=== PATIENT | male | born 1995 | race Caucasian/White ===

== ENCOUNTER 2018-08-30 11:16 | Emergency (ER) | payer OTHER, BC ==
[2018-08-30 11:37] VITALS: BP 131/78; PULSE 88; TEMP 98.6; BMI 28.2
--- NOTE | 2018-08-30 12:38 | PDOC ---
History of Present Illness - General Chief Complaint: Laceration Stated Complaint: CUT ON RT PINKY/BLEEDING - History of Present Illness Initial Comments: 08/30/18 19:45 The patient is a 22 year old male with no PMH who presents with a laceration to his R 5th digit. Patient works as a lineworker for the [employer] and was lifting a bag of trash when a protruding piece of glass caught his finger. Patient applied pressure and presented to our ED for further evaluation. The patient denies chest pain, shortness of breath, abdominal pain, diarrhea/ constipation, nausea/vomiting. NKDA Surgical: denies Social: denies toxic habits Past History - Past Medical History Allergies/Adverse Reactions: Allergies Allergy/AdvReac Type Severity Reaction Status Date / Time peanut Allergy Verified 08/30/18 11:34 Home Medications: Ambulatory Orders NK [No Known Home Medication] 08/05/15 COPD: No - Immunization History Td Vaccination: Yes TDAP Vaccination: No Immunization Up to Date: Yes - Suicide/Smoking/Psychosocial Hx Smoking History: Never smoked Have you smoked in the past 12 months: No Number of Cigarettes Smoked Daily: 0 Cigars Per Day: 0 Hx Alcohol Use: Yes (OCCASIONALLY) Drug/Substance Use Hx: No Substance Use Type: Alcohol Review of Systems - Review of Systems Constitutional: No: Chills, Fever HEENTM: No: Blurred Vision, Double Vision Respiratory: No: Cough, Shortness of Breath Cardiac (ROS): No: Chest Pain, Lightheadedness, Palpitations, Syncope ABD/GI: No: Constipated, Diarrhea, Nausea, Vomiting *Physical Exam - Vital Signs Last Vital Signs Temp Pulse Resp BP Pulse Ox 98.6 F 88 18 131/78 98 08/30/18 11:35 08/30/18 11:35 08/30/18 11:35 08/30/18 11:35 08/30/18 11:35 - Physical Exam General Appearance: Yes: Nourished, Appropriately Dressed HEENT: positive: Normal Voice, Hearing Grossly Normal Neck: positive: Trachea midline, Supple Comments:: 08/30/18 19:47 2+ radial pulses Extremity: positive: Other (0.8 cm laceration on R 5th digit, not actively bleeding, 2+ R radial pulse, sensation intact, tendons intact) Medical Decision Making - Medical Decision Making 08/30/18 19:49 22 year old male presents with R 5th digit laceration. NVI at presentation. Wound closed using 3 simple interrupted sutures. Patient counseled on return precautions and discharged home. *DC/Admit/Observation/Transfer Diagnosis at time of Disposition: Laceration, Finger laceration - Discharge Dispostion Disposition: HOME Condition at time of disposition: Good Decision to Admit order: No - Referrals - Patient Instructions Printed Discharge Instructions: DI for Laceration Repair Additional Instructions: Return to the Emergency Department for any new/worsening/concerning symptoms including loose sutures, discharge, redness or foul discharge otherwise return in 5 days for suture removal. - Post Discharge Activity Forms/Work/School Notes: Back to Work
== END 2018-08-30 12:56 | disposition home or self-care (01) ==
LOC: JERFT 11:16
PROC: 0HQFXZZ Repair Right Hand Skin, External Approach (ICD-10-PCS; principal; 2018-08-30)
DX: S61.216A Laceration without foreign body of right little finger without damage to nail, initial encounter (principal); W25.XXXA Contact with sharp glass, initial encounter; Y93.H9 Activity, other involving exterior property and land maintenance, building and construction; Y92.414 Local residential or business street as the place of occurrence of the external cause; Y99.0 Civilian activity done for income or pay
CPT/HCPCS: 99281-25

== ENCOUNTER 2019-06-08 07:03 | Emergency (ER) | payer OTHER, BC ==
[2019-06-08] MEDS ORDERED: ACETAMINOPHEN 500 MG TABLET (FP) PO ONE (07:51)
[2019-06-08 08:09] VITALS: BP 111/57; PULSE 90; TEMP 98.2; BMI 28.8
[2019-06-08] MEDS ORDERED: ACETAMINOPHEN 325 MG TABLET (FP) ONE (08:15)
--- NOTE | 2019-06-08 08:52 | PDOC ---
Attending Attestation - Resident Resident Name: Suzi Bhatti - ED Attending Attestation I have performed the following: I have examined & evaluated the patient, The case was reviewed & discussed with the resident, I agree w/resident's findings & plan, Exceptions are as noted - HPI HPI: 06/08/19 08:47 23-year-old gentleman with no significant past medical history presenting with laceration to the right forearm sustained while he was lifting a bag of trash with broken glass. Pt notes some bleeding, but he was quick to place pressure. denies any numnbes/tingling/weakness. tetanus UTD on exam pt with lacerations to the R forearm +injury to underlying muscle / fascia but extensor functions intact w right hand without weakness, no tendons/ligaments or injurys visible nv intact n oactive bleeding xray to r/o fb will need irrigation/lac repair 06/08/19 10:26 06/08/19 11:37 area was irrigated throughly, explored without signs of FB, xray neg for FB laceratio nclosed by resident Davy - fascia closed with resorbable deep sutures and exterior lac closed with nylon with good approximation. n/v intact discussed wit hpatient importance of avoiding heavy lifting will have pt fu with pmd return precautios were dsicussed
--- NOTE | 2019-06-08 09:14 | PDOC ---
History of Present Illness - General Chief Complaint: Injury Stated Complaint: INJURY Time Seen by Provider: 06/08/19 08:23 - History of Present Illness Initial Comments: 06/08/19 09:14 23yo M no hx presents from home c/o R forearm lac. Pt was at work this AM ~ 1.5hrs ago and cut his R proximal lateral forearm on a broken glass and wood cabinet. Pt stopped bleeding with pressure. Pt believes there might be some glass in there. Endorses mild pain. Denies numbness/tingling, weakness, dizziness, headache, other injuries, CP, SOB, abdominal pain. Last tetanus 4 years ago. 06/08/19 09:31 Past History - Past Medical History Allergies/Adverse Reactions: Allergies Allergy/AdvReac Type Severity Reaction Status Date / Time peanut Allergy Verified 06/08/19 08:09 Home Medications: Ambulatory Orders NK [No Known Home Medication] 08/05/15 COPD: No - Immunization History Td Vaccination: Yes TDAP Vaccination: No Immunization Up to Date: Yes - Suicide/Smoking/Psychosocial Hx Smoking History: Never smoked Have you smoked in the past 12 months: No Number of Cigarettes Smoked Daily: 5 Cigars Per Day: 0 Information on smoking cessation initiated: No Hx Alcohol Use: No Drug/Substance Use Hx: No Substance Use Type: Alcohol Review of Systems - Review of Systems Comments:: 06/08/19 09:22 Constitutional: Negative for chills, fever, fatigue. HENT: Negative for sore throat, rhinorrhea, congestion. Eyes: Negative for visual disturbance. Respiratory: Negative for shortness of breath, cough, and wheezing. Cardiovascular: Negative for chest pain, palpitations, and leg swelling. Gastrointestinal: Negative for abdominal pain, blood in stool, constipation, diarrhea, nausea, and vomiting. Genitourinary: Negative for dysuria, flank pain, and hematuria. Musculoskeletal: Negative for myalgias, back pain, and neck pain. Skin: Positive for laceration to R forearm. Negative for rash. Neurological: Negative for light-headedness, dizziness, syncope, weakness, numbness and headaches. Psychiatric/Behavioral: Negative for behavioral problems and confusion. *Physical Exam - Vital Signs Last Vital Signs Temp Pulse Resp BP Pulse Ox 98.2 F 90 17 111/57 L 99 06/08/19 08:03 06/08/19 08:03 06/08/19 08:03 06/08/19 08:03 06/08/19 08:03 - Physical Exam Comments: 06/08/19 12:46 Gen: Alert, NAD, comfortable-appearing. HEENT: PERRL, EOMI, MMM, NCAT. No conjunctival pallor. Sclera are non-icteric. Oropharynx is clear. CV: Regular rate and rhythm. No murmurs, rubs, or gallops. PULM: No resp distress. CTAB, no wheezes, rales, or rhonchi. ABD: soft, NT/ND, no rebound tenderness or guarding, no CVA tenderness. BACK: No TTP of c/t/l-spine. No step-offs or deformities. MSK: No bony deformities. 2+ pulses in all extremities. NEURO: AAOx3. PERRL. No gross CN deficits. Strength and sensation grossly intact throughout. EXTREMITIES: No cyanosis. No clubbing. No edema. No calf tenderness. RIGHT FOREARM: 5cm x 2cm L-shaped laceration with 4cm gaping, through muscle and fascia, no foreign objects seen, on right lateral posterior forearm just distal to elbow. Strength and sensation intact in all RUE. Full ROM of all fingers, wrist, and elbow. Normal capillary refill. PSYCH: Normal mood and thought pattern. SKIN: Warm and dry. Normal capillary refill. No rashes. No jaundice. Procedures - Laceration/Wound Repair Right Posterior Lateral Distal Arm Wound Length: 2.6 to 5.0 cm Wound Explored: clean, no foreign body present Wound's Depth, Shape: into muscle, irregular Irrigated w/ Saline: Yes Anesthesia: 1% Lidocaine Amount of Anesthetic (ccs): 3 Wound Repaired With: Sutures Suture Size/Type: 4:0, nylon Number of Sutures: 14 Layer Closure: Yes Deep Layer Suture Size/Type: 3:0, other (Polysorb) Number of Deep Layer Sutures: 6 ED Treatment Course - RADIOLOGY Radiology Studies Ordered: Category Date Time Status ELBOW-RIGHT [RAD] Stat Radiology 06/08/19 08:37 Ordered FOREARM- RIGHT [RAD] Stat Radiology 06/08/19 08:29 Ordered - Medications Given in the ED: ED Medications Discontinued Medications Generic Name Dose Route Start Last Admin Trade Name Freq PRN Reason Stop Dose Admin Acetaminophen 975 mg 06/08/19 07:51 06/08/19 08:16 Tylenol - PO 06/08/19 07:52 975 mg ONCE ONE Administration Medical Decision Making - Medical Decision Making 06/08/19 09:19 23yo M no MH presents from home with 5cm x 2cm L-shaped laceration with 4cm gaping, through muscle and fascia, no foreign objects seen, on right lateral posterior forearm just distal to elbow. Neurovascularly intact. Full ROM of fingers, wrist, and elbow. No concern for neuro compromise, vascular compromise , or tendon involvement. Tetanus up to date. Possible foreign bodies in lac - XR before repair. -Tylenol for pain -XR R forearm and elbow -Repair lac -Dispo: likely d/c home 06/08/19 12:07 Percocet given due to pain with irrigation. Lac cleaned and repaired with deep and superficial sutures. Bacitracin and gauze applied. Return precautions given. Pt understands all dc instructions and all questions were answered. *DC/Admit/Observation/Transfer Diagnosis at time of Disposition: Laceration - Discharge Dispostion Disposition: HOME Condition at time of disposition: Improved Decision to Admit order: No - Referrals Referrals: Cl Dalton MD [Primary Care Provider] - - Patient Instructions Printed Discharge Instructions: DI for Laceration Repair -- Simple Additional Instructions: You have been seen in the Emergency Department for your right forearm cut. It was X-Rayed and showed no foreign bodies such as glass. It has been repaired with sutures inside and outside. The sutures inside will dissolve on their own. The 14 sutures on the outside need to be removed in 7-10 days. Return to the ED or go to your primary care doctor to have them removed. If you experience pain, you can take Tylenol or Ibuprofen as directed on the medication bottle, but do not exceed 3g of Ibuprofen or 4g of Tylenol a day. Return to the ED immediately if you experience redness, warmth, or pus around the wound, fever, pain not controlled by over the counter medications, dizziness , or any other new or worsening symptom. Suture care: Keep the wound clean and as dry as possible. Do not immerse or soak the wound in water. Leave original bandages on the wound for the first 24 hours. After this time, showering or rinsing is recommended, rather than bathing. After the first day, remove old bandages and gently cleanse the wound with soap and water. Cleansing twice a day prevents buildup of debris and will result in easier suture removal. See additional instructions attached. Limit activity (no heavy lifting) for 6 weeks. - Post Discharge Activity Forms/Work/School Notes: Back to Work
== END 2019-06-08 11:44 | disposition home or self-care (01) ==
LOC: JER 07:03
PROC: 0JQG0ZZ Repair Right Lower Arm Subcutaneous Tissue and Fascia, Open Approach (ICD-10-PCS; principal; 2019-06-08)
DX: S51.811A Laceration without foreign body of right forearm, initial encounter (principal); W25.XXXA Contact with sharp glass, initial encounter; Y93.89 Activity, other specified; Y92.69 Other specified industrial and construction area as the place of occurrence of the external cause; Y99.0 Civilian activity done for income or pay
CPT/HCPCS: 73070-TC-RT-FY; 73090-TC-RT-FY; 99282-25